=== PATIENT | male | born 1990 | race Caucasian/White ===

== ENCOUNTER 2020-10-08 08:55 | Emergency (ER) | payer MEDICAID, SELFPAY ==
[2020-10-08 08:57] VITALS: BP 180/89; PULSE 84; RESP 18; O2SAT 98; BMI 62.8
--- NOTE | 2020-10-08 09:11 | W.ED.EXTPRO ---
HPI - Extremity Problem General: Chief complaint: Extremity Injury, Lower Stated complaint: L HIP PAIN Time Seen by Provider: 10/08/20 08:56 History of Present Illness: HPI Narrative: Patient is a 30-year-old male who comes to the ED with acute on chronic lower back pain. Patient says a couple weeks ago he fell out of chair and He started having more acute low back pain and pain in the left hip that radiates down into left leg. He saw his PCP and they did an x-ray of his left hip and there is no fracture seen. His primary care physician wanted him to get some basic blood work to check for some kind of infection potentially in the hip. He rates his pain a 10 out of 10. Any weightbearing causes more pain. Denies any bladder or bowel incontinence, pelvic anesthesia or weakness to extremities. Associated symptoms: Deny chest pain, fever(s) or rash Review of Systems Const: Denies: fever(s), chills or fatigue Eyes: Denies: change in vision or eye discomfort ENMT: Denies: throat pain, odynophagia, nasal discharge or nasal congestion Card: Denies: chest pain, palpitations, edema, swelling of feet/ankles, dyspnea on exertion or orthopnea Resp: Denies: dyspnea, productive cough or non-productive cough GI: Denies: abdominal pain, nausea, vomiting, diarrhea, constipation or hematochezia : Denies: flank pain, difficulty urinating, dysuria or hematuria Musc: Reports: back pain; Denies: neck pain or extremity swelling Skin/Breast: Denies: rash or new lesions Neuro: Denies: headache(s), numbness in extremities or weakness in extremities Physical Exam Const: COMMON NORMALS: no acute distress, patient oriented x3 and alert GENERAL APPEARANCE: cooperative and comfortable NUTRITIONAL APPEARANCE: obese HENMT: COMMON NORMALS: normocephalic HEAD & SCALP: normocephalic MOUTH: Normal oral and palatal mucosa present THROAT: posterior oropharynx normal and uvula midline Neck/C-Spine: COMMON NORMALS: supple GENERAL: Yes normal visual inspection Resp: COMMON NORMALS: normal respiratory effort, No retractions, No use of accessory muscles and clear to auscultation bilaterally AUSCULTATION: clear to auscultation bilaterally Cardio: COMMON NORMALS: regular rate, regular rhythm, S1 normal heart sound present, S2 normal heart sound present, No gallops present (Cardio), No clicks present (Cardio), No murmurs present (Cardio) and Peripheral pulses 2+ throughout RATE: regular rate RHYTHM: regular rhythm HEART SOUNDS: S1 normal heart sound present and S2 normal heart sound present PERIPHERAL PULSES: Peripheral pulses 2+ throughout GI: COMMON NORMALS: Normal to inspection, nondistended, normoactive bowel sounds present, Soft to palpation, non-tender and no masses PALPATION: Yes Soft to palpation : COMMON NORMALS: Yes no CVA tenderness BLADDER/KIDNEY EXAM: Yes no CVA tenderness Back/Pelvis: COMMON NORMALS: no CVA tenderness LUMBAR SPINE/LOWER BACK: Yes paraspinal muscle tenderness and Yes straight leg raise positive left Straight leg raise positive details left: at 30 degrees Extremity: COMMON NORMALS: normal to inspection Neuro: COMMON NORMALS: patient oriented x3 and moves all extremities SENSORIUM/ORIENTATION: Yes alert Skin: GENERAL SKIN EXAM: dry skin Course Vital Signs: Vital signs: Vital Signs Pulse Rate 88 10/08/20 11:24 Respiratory Rate 14 10/08/20 11:24 Blood Pressure 143/87 10/08/20 11:24 Pulse Oximetry 95 10/08/20 11:24 MDM - Extremity (Nontraumatic) MDM Narrative: Medical decision making narrative: Patient is a 30-year-old male comes to the ED with lower back pain that radiates down left leg. Pain started after he fell out of a chair couple weeks ago. He has seen his PCP within the last week and x-ray of the hip done and it showed no acute findings or fractures. Exam shows an obese 30-year-old male in no acute distress. He has some tenderness in the lower back left side and a positive left straight leg raise test. Labs were performed because patient said his PCP was wanting to get labs on him. CBC and CMP were unremarkable. Patient has no cauda equina symptoms. He was given a shot of morphine and Norflex while here and his pain improved. He was then given a shot of Toradol before he discharged and sent home with a prescription for muscle relaxer, Medrol Dosepak and ibuprofen 800s. He was told to stretch lower back daily. Apply cold pack or heat to help with symptoms. Return to ED precautions given. Follow-up with PCP in 7 to 10 days. Patient understood agree with plan. Lab Data: Attestation: I reviewed the patient's lab results. Labs: Lab Results 10/08/20 10/08/20 Range/Units 09:49 09:49 WBC 8.5 (4.0-10.0) 10^3/ uL RBC 5.88 H (4.1-5.3) 10^6/u L Hgb 12.5 (11.7-16.6) g/dL Hct 42.7 (42.0-52.0) % MCV 72.6 L (80-94) fL MCH 21.3 L (28.0-34.0) pg MCHC 29.3 L (30.0-36.0) g/dL RDW 16.8 H (12.1-15.1) % Plt Count 227 (130-400) 10^3/c mm MPV 10.2 (7.4-10.4) fL Neut % (Auto) 58.2 % Lymph % (Auto) 28.2 % [place] % (Auto) 9.0 % Eos % (Auto) 2.7 % Baso % (Auto) 0.8 % Neut # (Auto) 4.97 (1.8-7.7) 10^3/u L Lymph # (Auto) 2.4 (0.8-4.8) 10^3/u L [place] # (Auto) 0.8 (0.2-0.9) 10^3/u L Eos # (Auto) 0.2 (0.0-0.8) 10^3/u L Baso # (Auto) 0.1 (0.0-0.1) 10^3/u L Nucleated RBC % (a uto) 0 % Nucleated RBCs # 0.0 /100WBC Sodium 138 (136-145) mmol/L Potassium 4.5 (3.5-5.1) mmol/L Chloride 103 (98-107) mmol/L Carbon Dioxide 27 (22-29) mmol/L Anion Gap 12.5 (5-19) BUN 8 (6-20) mg/dL Creatinine 1.0 (0.7-1.2) mg/dL GFR Calculation 86.6 L (90-130) mL/min Glucose 114 (65-115) mg/dL Calculated Osmolal ity 285 (285-295) mOsm/k g Calcium 9.1 (8.5-10.5) mg/dL Total Bilirubin 0.2 (0.15-1.2) mg/dL AST 19 (0-40) U/L ALT 37 (0-41) U/L Alkaline Phosphata se 68 (40-130) IU/L Total Protein 6.1 L (6.6-8.7) g/dL Albumin 3.8 (3.5-5.2) g/dL Globulin 2.3 (1.3-4.6) g/dL Discharge Plan Discharge Patient Disposition: Home Clinical Impression: Lumbar radiculopathy Condition: Stable Prescriptions: New Medrol ([place]) 4 mg tablets,dose pack See Rx Instructions .ROUTE .COMPLEX Qty: 21 RF: 0 ibuprofen 800 mg tablet 800 mg PO Q8H PRN (Reason: pain) Qty: 15 RF: 0 No Action tizanidine 2 mg tablet 2 mg PO TID PRN (Reason: Muscle Pain) RF: 0 atorvastatin 10 mg tablet 10 mg PO DAILY RF: 0 omeprazole 20 mg capsule,delayed release(DR/EC) 20 mg PO DAILY RF: 0 ProAir HFA 90 mcg/actuation HFA aerosol inhaler 1 puff INHALATION Q6H PRN (Reason: Shortness Of Breath) RF: 0 hydrochlorothiazide 12.5 mg tablet 12.5 mg PO DAILY RF: 0 Discharge Orders: Discharge ED (Routine); Ordered 10/08/20 Ordered By: Adam Álvarez Referrals: Joanna Kahn MD [Primary Care Provider] - Discharge Diet: Regular Discharge Activity: Increase activity as tolerated Patient Instructions: Lumbar Radiculopathy (ED) Activity Restrictions/Additional Instructions: Follow-up with medical provider as directed in 7 to 10 days for reevaluation. Take medications as prescribed. Go fill your previously prescribed muscle relaxer tizanidine and take at night before bed because it can cause drowsiness. Apply cold pack or heat on lower back to help with symptoms, stretch and massage lower back daily. Return to the ER or your medical provider if condition worsens. Please read and understand discharge instructions. If any questions, please ask. Coding Level of Care Code ED [employer] for [facility] Fwd Exam Comprehensive
[2020-10-08 10:01] LABS: Basophils # 0.1 10^3/uL (0.0-0.1); Basophils % 0.8 %; Eosinophils # 0.2 10^3/uL (0.0-0.8); Eosinophils % 2.7 %; Hematocrit 42.7 % (42.0-52.0); Hemoglobin 12.5 g/dL (11.7-16.6); Lymphocytes # 2.4 10^3/uL (0.8-4.8); Lymphocytes % 28.2 %; Mean Corpuscular HGB Conc 29.3 g/dL (30.0-36.0); Mean Corpuscular Hemoglobin 21.3 pg (28.0-34.0); Mean Corpuscular Volume 72.6 fL (80-94); Mean Platelet Volume 10.2 fL (7.4-10.4); Monocytes # 0.8 10^3/uL (0.2-0.9); Neutrophils # 4.97 10^3/uL (1.8-7.7); Neutrophils % 58.2 %; Nucleated Red Blood Cells % 0 %; Platelet Count 227 10^3/cmm (130-400); Red Blood Count 5.88 10^6/uL (4.1-5.3); Red Cell Distribution Width 16.8 % (12.1-15.1); White Blood Count 8.5 10^3/uL (4.0-10.0)
[2020-10-08 10:31] LABS: Alanine Aminotransferase 37 U/L (0-41); Albumin Level 3.8 g/dL (3.5-5.2); Alkaline Phosphatase 68 IU/L (40-130); Anion Gap 12.5 (5-19); Aspartate Amino Transferase 19 U/L (0-40); Blood Urea Nitrogen 8 mg/dL (6-20); Calcium 9.1 mg/dL (8.5-10.5); Carbon Dioxide 27 mmol/L (22-29); Chloride 103 mmol/L (98-107); Globulin 2.3 g/dL (1.3-4.6); Glomerular Filtration Rate 86.6 mL/min (90-130); Glucose 114 mg/dL (65-115); Osmolality Calculated 285 mOsm/kg (285-295); Potassium 4.5 mmol/L (3.5-5.1); Sodium 138 mmol/L (136-145); Total Bilirubin 0.2 mg/dL (0.15-1.2); Total Protein 6.1 g/dL (6.6-8.7)
[2020-10-08] MEDS: predniSONE 20 mg Tablet 60 MG PO (10:31)
[2020-10-08] MEDS: morphine 4 mg/mL SDV 1 mL IM (10:31)
[2020-10-08] MEDS: orphenadrine 30 mg/mL Inj 2 mL 60 MG IM (10:31)
[2020-10-08 10:34] VITALS: BP 132/94; PULSE 89; RESP 14; O2SAT 98
[2020-10-08] MEDS: ketorolac 60 mg/2 mL INJ IM (11:19)
[2020-10-08 11:24] VITALS: BP 143/87; PULSE 88; RESP 14; O2SAT 95
== END 2020-10-08 11:25 | disposition home or self-care (01) ==
PROVIDERS: Emergency Provider Physician Assistant; PCP Pediatrics Adolescent Medicine
DX: M54.16 Radiculopathy, lumbar region (principal)
CPT/HCPCS: 12345; 36415; 80053; 85025; 96372; 99281; 99283; J1885; J2270; J2360; J7512